=== PATIENT | male | born 1980 | race Caucasian/White ===

== ENCOUNTER 2019-07-20 08:51 | Emergency (ER) | payer OTHER ==
[2019-07-20 08:56] VITALS: TEMP 98.1; BMI 30.8
--- NOTE | 2019-07-20 09:01 | PDOC ---
History of Present Illness - General Chief Complaint: Pain Stated Complaint: PAIN Time Seen by Provider: 07/20/19 08:55 History Source: Patient - History of Present Illness Initial Comments: 07/20/19 09:10 39-year-old male right-sided anterior rib pain. Patient reports that he was helping move a metal pole while at work. The pole slipped and hit the right anterior chest. Patient reports that shortly after he is having some pain with breathing. Patient reports the pain to be 3 out of 10 at this time with deep breaths. Patient has equal breath sounds at this time with anterior chest tenderness. Denies past medical history, past surgical history Past History - Past Medical History Allergies/Adverse Reactions: Allergies Allergy/AdvReac Type Severity Reaction Status Date / Time No Known Allergies Allergy Verified 07/20/19 08:56 Home Medications: Ambulatory Orders Ibuprofen 600 mg PO QID PRN #20 tablet 07/20/19 - Psycho Social/Smoking Cessation Hx Smoking History: Never smoked Review of Systems - Review of Systems Able to Perform ROS?: Yes Is the patient limited Italian proficient: No Cardiac (ROS): Yes: Chest Pain *Physical Exam - Vital Signs Last Vital Signs Temp Pulse Resp BP Pulse Ox 98.1 F 78 16 127/77 98 07/20/19 08:55 07/20/19 08:55 07/20/19 08:55 07/20/19 08:55 07/20/19 08:55 - Physical Exam General Appearance: Yes: Appropriately Dressed Respiratory/Chest: positive: Chest Tender, Lungs Clear, Normal Breath Sounds. negative: Respiratory Distress, Accessory Muscle Use, Labored Respiration Cardiovascular: positive: Regular Rhythm, Regular Rate Gastrointestinal/Abdominal: positive: Normal Bowel Sounds, Soft. negative: Tender Extremity: positive: Normal Capillary Refill, Normal Inspection, Normal Range of Motion Integumentary: positive: Normal Color, Dry, Warm Neurologic: positive: Fully Oriented, Alert, Normal Mood/Affect Medical Decision Making - Medical Decision Making 07/20/19 09:40 A: rib pain P: xray ribs and chest negative Discharge - Discharge Information Problems reviewed: Yes Clinical Impression/Diagnosis: Rib pain on right side Disposition: HOME - Additional Discharge Information Prescriptions: Ibuprofen 600 mg PO QID PRN #20 tablet PRN Reason: Pain - Follow up/Referral - Patient Discharge Instructions Patient Printed Discharge Instructions: DI for Rib Contusion Additional Instructions: Take ibuprofen every 6 hours as needed for pain. Apply ice to the area. Take deep breaths. Follow-up with your doctor as soon as possible Return to the emergency room for any worsening symptoms - Post Discharge Activity Work/Back to School Note: Back to Work
[2019-07-20] MEDS ORDERED: IBUPROFEN 600 MG TABLET (FP) PO ONE ×2 (09:09→09:12)
[2019-07-20 09:38] VITALS: BP 116/65; PULSE 68
== END 2019-07-20 10:00 | disposition home or self-care (01) ==
LOC: JERFT 08:51
DX: S20.211A Contusion of right front wall of thorax, initial encounter (principal); W20.8XXA Other cause of strike by thrown, projected or falling object, initial encounter; Y93.89 Activity, other specified; Y92.69 Other specified industrial and construction area as the place of occurrence of the external cause; Y99.0 Civilian activity done for income or pay
CPT/HCPCS: 71046-TC-FY; 71101-TC-RT-FY; 99281-25